=== PATIENT | female | born 1970 | race Caucasian/White ===

== ENCOUNTER 2025-05-15 21:38 | Emergency (ER) | payer MEDICAID, SELFPAY ==
[2025-05-15 21:40] VITALS: BMI 21.1
[2025-05-15 21:52] VITALS: BP 152/110; BP 155/102; PULSE 101; RESP 20; TEMP 36.8; O2SAT 95
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
[2025-05-15] MEDS: ONDANSETRON ODT 4 MG TABRAP PO (22:49)
[2025-05-15] MEDS: ACETAMINOPHEN w/COD 300-30 TABLET 2 TAB PO (22:49)
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
[2025-05-16 02:41] VITALS: BP 136/72; PULSE 76; RESP 18; TEMP 36.7; O2SAT 98
== END 2025-05-16 02:42 | disposition home or self-care (01) ==
PROVIDERS: Emergency Provider Emergency Medicine
DX: S00.03XA Contusion of scalp, initial encounter (principal); V03.931A Pedestrian on standing electric scooter injured in collision with car, pick-up or van, unspecified whether traffic or nontraffic accident, initial encounter; J44.9 Chronic obstructive pulmonary disease, unspecified; I11.0 Hypertensive heart disease with heart failure; I50.9 Heart failure, unspecified
CPT/HCPCS: 70450; 72125; 99284; Q0162; A9270